=== PATIENT | female | born 2000 | race Caucasian/White ===

== ENCOUNTER → 2024-04-17 11:41 | Outpatient (REF) | payer OTHER, SELFPAY ==
[2024-04-17 15:07] LABS: Hepatitis B Surface Antibody Negative
== END ==
LOC: OHS 11:41
PROVIDERS: ATTENDING PHYSICIAN Nurse Practitioner Family
DX: Z23 Encounter for immunization (principal)
CPT/HCPCS: 86480; 86706

== ENCOUNTER 2024-09-01 23:21 | Emergency (ER) | payer OTHER, SELFPAY ==
[2024-09-01 23:23] VITALS: BP 134/83
--- NOTE | 2024-09-01 23:47 | ED.GENMED ---
History of Present Illness
General
Chief Complaint: Blood and Body Fluid Exposure
Source: patient
Time Seen by Provider: 09/01/24 23:40
Nursing documentation reviewed up to this point in time: agreed with
History of Present Illness
History of Present Illness:
This a pleasant 23-year-old female that presents after an accidental needlestick. She works on the floor as a nurse and was giving a subcutaneous Lovenox injection to an 86-year-old patient. She was wearing gloves. She was done injecting the
medication, when she accidentally injected herself in the right index finger. She immediately washed the wound. She is here for evaluation. As far she knows, the patient has no documented blood-borne pathogens.
Phy Exam
General Physical Exam
General Presentation: well appearing and no apparent distress
General Skin: warm and dry
General Habitus: normal
General Mental: alert
General Hydration: appears well hydrated
ENT Exam
ENT Exam: EOMI, neck supple and normocephalic
Eye Exam
Eye Exam: PERRL, cornea clear and conjunctiva normal
Cardiovascular Exam
Cardiovascular Exam: regular rate/rhythm, no edema, no murmur and normal peripheral pulses
Pulmonary Exam
Pulmonary Exam: lungs clear, no respiratory distress and no cough
Neurological Exam
Neurological Exam: alert, oriented x3, no motor deficits and speech normal
Musculoskeletal Exam
Musculoskeletal Exam: full ROM and no edema
Skin Exam
Skin Exam: normal color, warm/dry, no rash and no petechia
Psychiatric Exam
Psychiatric Exam: normal mood/affect
Course
Orders/Labs/Results
Orders:
Orders
09/01/24 23:54
Pt has had a significant HIV exposure? Routine
HIV Exposure is significant?: No
Complete Blood Count/With Diff Urgent
Comprehensive Metabolic Panel Urgent
HCG, Serum Qualitative Screen Urgent
HIV Combo Urgent
Hepatitis B Surface Antibody Urgent
Hepatitis B Surface Antigen Urgent
Hepatitis C Antibody Urgent
09/01/24 23:55
Test Result ONCE
Vital Signs
Initial and Last Documented VS:
Initial Vital Signs
Temp Pulse Resp BP Pulse Ox
98.1 F 71 18 134/83 93
09/01/24 23:23 09/01/24 23:23 09/01/24 23:23 09/01/24 23:23 09/01/24 23:23
Last Documented Vital Signs
Temp Pulse Resp BP Pulse Ox
98.1 F 71 18 134/83 93
09/01/24 23:23 09/01/24 23:23 09/01/24 23:23 09/01/24 23:23 09/01/24 23:23
*Critical Care Note
Total Time (30-74mins, 75-104mins- exclusive of procedures): Not Applicable
Update Note
Update Note:
tellers supervisor notified to get consent and test source patient.
ED Attending Note
-
Portions of this chart may have been created with voice recognition software.� Occasional wrong word or��sound alike� substitutions may have occurred due to the inherent limitations of voice recognition software.
Discharge Plan
Departure
Patient Disposition: Home (Routine Discharge)
Date of Disposition: 09/01/24
Time of Disposition: 23:50
Patient with high blood pressure during this ER visit?: Yes
Condition: Good
Discharge Problem:
Accidental hypodermic needlestick injury
Instructions: Blood or body fluid exposure, BLOOD PRESSURE
Referrals:
[facility] [Outside]
Stand Alone Forms: Bl/Fluid Consent/Declination, Blood Body/Fluid Exposure
Activity Restrictions/Additional Instructions:
It was a pleasure meeting you and taking part in your care. We hope for your continued healing and wellness.
Please read discharge instructions in their entirety. However, they are for general education and may not describe your exact diagnosis at discharge. Information on your ER visit and medical conditions were discussed with you along with appropriate
follow up information...
If indicated, please take your medications as instructed and indicated on discharge paperwork.
Please schedule a follow up appointment as directed. Call to schedule an appointment
Please return to the emergency department with ANY change in, persisting, or worsening of symptoms. If any of your symptoms do not improve, or persist, or become more severe within 6-12 hours, please return to the emergency department for further
care.
Please return to the emergency department if you develop a headache, neck pain/stiffness, fever greater than 100.4F, chest pain, shortness of breath, persistent nausea, vomiting, slurred speech, difficulty walking, numbness/tingling, weakness, signs
of infection or any other symptoms that are worrisome to you.
If you have any questions or concerns please do not hesitate to call the Hospital at or E-mail me directly at [email or web address]
Interventions
Interventions:
*Risk Screen - Suicide Last Done: 09/01/24 23:24
*General Assessment Last Done: 09/01/24 23:24
*Neglect/Abuse Screening Last Done: 09/01/24 23:24
*ED COVID-19 Vaccine History Last Done: 09/01/24 23:24
Discharge Date and Time
Print Language: STATELESS
[2024-09-02 00:52] LABS: % Basophils 0.5 % (0-2); % Eosinophils 1.3 % (0-6); % Immature Granulocytes 0.4 % (0-0.5); % Neutrophils 61.8 % (42.2-75.2); Absolute Eosinophils 0.1 10^3/uL (0-0.7); Absolute Lymphocytes 2.3 10^3/uL (1.2-3.4); Absolute Monocytes 0.5 10^3/uL (0.1-0.6); Absolute Neutrophils 4.6 10^3/uL (1.4-6.5); Hematocrit 38.6 % (37.0-47.0); Hemoglobin 13.4 g/dL (12.0-16.0); Mean Corp Hgb Conc. 34.7 g/dL (33.0-37.0); Mean Corpuscular Volume 80.8 fL (81.0-99.0); Nucleated Red Blood Cells % 0 %; Red Blood Cell Count 4.78 10^6/uL (4.20-5.40); Red Cell Dist. Width 12.4 % (11.5-14.5); White Blood Cell Count 7.5 10^3/uL (4.8-10.8)
[2024-09-02 01:00] LABS: HCG, Serum Qualitative Screen Negative
[2024-09-02 01:09] LABS: ALT (SGPT) 19 U/L (0-35); AST (SGOT) 23 U/L (14-36); Albumin 4.6 g/dl (3.5-5.0); Alkaline Phosphatase 65 U/L (38-126); Blood Urea Nitrogen 12 mg/dl (7-17); Calcium 9.8 mg/dl (8.4-10.2); Carbon Dioxide 23 mmol/L (22-30); Chloride 101 mmol/L (98-107); Glucose 104 mg/dl (70-99); Sodium 138 mmol/L (135-145); Total Bilirubin 0.3 mg/dl (0.2-1.3); Total Protein 7.3 g/dl (6.3-8.2); eGFR > 60.00
[2024-09-02 01:41] LABS: Mean Platelet Volume 10.7 fL (7.4-10.4); Platelet Count 235 10^3/uL (130-400)
[2024-09-02 02:47] LABS: HIV Combo Negative (Negative)
[2024-09-02 03:29] LABS: Hepatitis B Surface Antigen Negative (Negative)
[2024-09-02 03:46] LABS: Hepatitis B Surface Antibody Negative; Hepatitis C Antibody Negative (Negative)
== END 2024-09-02 00:35 | disposition home or self-care (01) ==
LOC: EMR 23:21
PROVIDERS: EMERGENCY PHYSICIAN Student in an Organized Health Care Education/Training Program
DX: Z77.21 Contact with and (suspected) exposure to potentially hazardous body fluids (principal); W46.0XXA Contact with hypodermic needle, initial encounter; Y99.0 Civilian activity done for income or pay; R03.0 Elevated blood-pressure reading, without diagnosis of hypertension
CPT/HCPCS: 99283; 80053; 84703; 85025; 86706; 86803; 87340; 87389